=== PATIENT | male | born 1980 | race Caucasian/White ===

== ENCOUNTER 2017-04-02 10:19 | Emergency (ER) | payer OTHER ==
[~2017-04-02] VITALS: Ht 167.6 cm; Wt 65.7 kg
[2017-04-02 10:42] VITALS: BP 162/92
[2017-04-02 11:50] LABS: MCH 30.4 PG (29.0-34.0); MCV 89.2 FL (86-99); MEAN PLAT.VOLUME 10.3 uM^3 (9.0-12.4); PLATELET COUNT 301 K/uL (156-360); RBC DIS.WIDTH-CV 13.2 % (11.8-14.6); RBC DIS.WIDTH-SD 43.2 % (39-53); RED BLOOD COUNT 5.27 M/uL (4.00-5.50); WHITE BLOOD COUNT 13.7 K/uL (4.1-10.2)
[2017-04-02 12:01] LABS: CHLORIDE 103 mEq/L (99-109); SODIUM 137 mEq/L (136-147)
[2017-04-02 12:02] LABS: GLUCOSE 110 mg/dL (70-99)
[2017-04-02 12:04] LABS: ANION GAP 7 MEQ/L (2-14)
[2017-04-02 12:06] LABS: GFR ESTIMATE (CALCULATED) > 59 mL/min/
[2017-04-02 12:07] LABS: UREA NITROGEN (BUN) 17 mg/dL (9-23)
[2017-04-02 12:11] LABS: TROP-I INTERPRETATION NEGATIVE; TROPONIN-I < 0.01 ng/mL (0.0-0.30)
[2017-04-02] MEDS ORDERED: NAPROXEN500 MG PO (12:28)
== END 2017-04-02 12:44 | disposition home or self-care (01) ==
LOC: EME 10:19
PROVIDERS: Physician Assistant Medical
DX: M25.511 Pain in right shoulder (principal); M24.511 Contracture, right shoulder
CPT/HCPCS: 73030; 80048; 84484; 85027; 93005; 99281; 99284